=== PATIENT | male | born 1995 | race Caucasian/White ===

== ENCOUNTER 2019-02-10 18:57 | Emergency (ER) | payer OTHER ==
[2019-02-10 19:04] VITALS: BP 145/82
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
== END 2019-02-10 19:32 | disposition home or self-care (01) ==
LOC: ED 18:57
DX: S70.11XA Contusion of right thigh, initial encounter (principal); S39.012A Strain of muscle, fascia and tendon of lower back, initial encounter; V49.49XA Driver injured in collision with other motor vehicles in traffic accident, initial encounter; Y92.410 Unspecified street and highway as the place of occurrence of the external cause; Y99.2 Volunteer activity; J45.909 Unspecified asthma, uncomplicated
CPT/HCPCS: 99281